=== PATIENT | female | born 1975 | race Caucasian/White ===

== ENCOUNTER 2017-11-03 05:56 | Inpatient (IN) | payer OTHER, MEDICAID ==
[~2017-11-03 05:56] MED LIST: Buffered Lidocaine 0.9% SYRIN* 5 ML/SYR SYRINGE INTRADERM ONE
[2017-11-03] MEDS ORDERED: Sodium Citrate/Citric Acid* 15 ML UDC PO ONE (06:00)
[2017-11-03] MEDS ORDERED: ceFOXitin 2 GM IVPREMIX* 2 GM/50 ML BAG IVPB ONE (06:00)
[2017-11-03] MEDS ORDERED: Lidocaine 1% MPF* 2 ML VIAL ONE (06:41)
[2017-11-03] MEDS ORDERED: OXYTOCIN* 10 UNITS/ML 1 ML VIAL ONE (10:28)
[2017-11-03] MEDS ORDERED: Morphine PF AMP (0.5MG/ML)* 5 MG/10 ML AMP ONE (10:29)
[2017-11-03] MEDS ORDERED: Ketorolac INJ* 30 MG/ML 1 ML VIAL ONE (11:19)
[2017-11-03] MEDS ORDERED: Metoclopramide IV* 5 MG/ML 2 ML VIAL ONE (11:19)
[2017-11-03] MEDS ORDERED: Famotidine IV* 10 MG/ML 2 ML (20 mg) ONE (11:19)
[2017-11-03] MEDS ORDERED: Ondansetron INJ* 2 MG/ML VIAL ONE (11:19)
[2017-11-03] MEDS ORDERED: Dexamethasone IV* 4 MG/ML 1 ML (4 MG) ONE (11:19)
[2017-11-03] MEDS ORDERED: fentaNYL* 50 MCG/ML 2 ML VIAL (100 MCG VIAL) IV PRN (11:21)
[2017-11-03] MEDS ORDERED: DiMENhydriNATE IV* 50 MG/ML VIAL IV PUSH PRN (11:22)
[2017-11-03] MEDS ORDERED: diPHENhydraMINE IV* 50 MG/ML 1 ml VIAL (BENADRYL) IV PRN (11:22)
[2017-11-03] MEDS ORDERED: Scopolamine 1.5 mg* PATCH TRANSDERM PRN (11:22)
[2017-11-03] MEDS ORDERED: oxyCODONE/Acetamin 5/325 MG* TAB PO PRN ×2 (11:22)
[2017-11-03] MEDS ORDERED: Naloxone* 2 MG in NS 0.9% 250 ML* 250 ML IV PRN (11:22)
[2017-11-03] MEDS ORDERED: Nalbuphine* 20 MG/ML 1 ML VIAL IV PRN (11:22)
[2017-11-03] MEDS ORDERED: Naloxone* 0.4 MG/ML 1 ML VIAL IV PRN (11:22)
[2017-11-03] MEDS ORDERED: PROCHLORPERAZINE INJ 5 MG/ML 2 ML VIAL IV PRN (11:22)
[2017-11-03] MEDS ORDERED: Scopolamine PATCH Remove* 1 NOTE MISC PATCH OFF PRN (11:22)
[2017-11-03] MEDS ORDERED: Witch Hazel PAD* JAR TOPICAL PRN (11:48)
[2017-11-03] MEDS ORDERED: Glycerin ADULT SUPP PR PRN (11:48)
[2017-11-03] MEDS ORDERED: Dibucaine 1% 28.35 GM TUBE PR PRN (11:48)
[2017-11-03] MEDS: Simethicone TAB* 80 MG TAB.CHEW PO SCH ×3 (13:41→21:06)
[2017-11-03] MEDS: Ondansetron INJ* 2 MG/ML VIAL IV PRN ×2 (13:41→21:10)
[2017-11-03] MEDS: Nalbuphine* 20 MG/ML 1 ML VIAL IV SCH (14:50)
[2017-11-03] MEDS: Docusate CAP* 100 MG PO SCH ×2 (16:09→21:06)
[2017-11-03] MEDS: Ketorolac INJ* 30 MG/ML 1 ML VIAL IV PRN ×2 (16:54→23:16)
[2017-11-03] MEDS: Acetaminophen TAB* 325 MG PO SCH ×2 (16:55→21:06)
[2017-11-04] MEDS: Acetaminophen TAB* 325 MG PO SCH
[2017-11-04] MEDS ORDERED: oxyCODONE/Acetamin 5/325 MG* TAB PO PRN ×2 (02:38)
[2017-11-04] MEDS: Nalbuphine* 20 MG/ML 1 ML VIAL IV SCH (04:04)
[2017-11-04] MEDS: Acetaminophen TAB* 325 MG PO PRN ×2 (04:05→16:15)
--- NOTE | 2017-11-04 06:55 | OP ---
OPERATIVE REPORT: DATE OF OPERATION: 11/03/17 DATE OF : 79 SURGEON: Roberto Phillips MD. FUDGER: Dr. Traylor. ANESTHESIA: Spinal. PRE-OP DIAGNOSIS: at 39 weeks with prior section who desires permanent sterilizat ion. POST-OP DIAGNOSIS: at 39 weeks with prior section who desires permanent steriliza tion. OPERATIVE PROCEDURE: Repeat low transverse section and bilateral fimbriectomy. ESTIMATED BLOOD LOSS: 600 cc. SPECIMENS SENT TO PATHOLOGY: Bilateral fallopian tube fimbriae. FLUIDS: She received 1400 cc of IV crystalloid fluid. URINE OUTPUT: Clear. FINDINGS: Delivery of a viable male infant with Apgars of 9 and 10, weighing 7 pounds 14 ounces with clear fluid. The placenta was grossly intact with 3-vessel cord noted. The uterus, adnexa, bowel, and bladder were all within normal limits and there were no complications. DESCRIPTION OF PROCEDURE: The patient was taken to the operating room. She was identified and she w as placed on the operating room table where a spinal anesthetic was obtained without difficulty. She was then placed in a supine position with a leftward tilt, prepped and draped in a normal sterile fa shion. A Pfannenstiel skin incision was made with a knife and carried thorough to the underlying lay er of fascia. The fascia was nicked in the midline and extended laterally with curved Barron scissors. The fascia was then grasped superiorly and inferiorly with Randa clamps and dissected off sharply from the rectus muscle. The rectus muscle was in the midline bluntly. The peritoneum was identified, grasped with pickups, entered sharply with Metzenbaum scissors, and extended superiorly a nd inferiorly sharply. A bladder blade was inserted into the patient's abdomen. A bladder flap was created using Metzenbaum scissors over which the bladder blade was then reinserted. A low transverse uterine incision was made with a knife and extended laterally with bandage scissors. The amniotic s ac was ruptured. The infant's head was then grasped and delivered atraumatically. The rest of the i nfant's body was then delivered. The cord was clamped and cut. The infant was given to the pediatri neil. The cord bloods were obtained. The placenta was removed manually. The uterus was then exteri orized, cleared off all clot and debris using moist laparotomy sponges. The uterine incision was the n closed using 0 Polysorb suture in a running locked fashion with a second imbricating layer of 0 Santiago ysorb suture with good hemostasis noted. The uterus was returned to the patient's abdomen. The gutt ers were then cleared off all clot and debris using moist laparotomy sponges. Prior to returning the uterus in the patient's abdomen, a bilateral fimbriectomy was performed in the usual fashion with 0 Polysorb sutures as free ties. At this point, the uterus was placed back into the patient's abdomen. All the instruments and sponges were removed through the patient's abdomen. The peritoneum was yvan sed using 3-0 Polysorb suture in a running fashion. The fascia was closed using 0 Polysorb suture in a running fashion and the skin was closed using Monocryl subcuticular stitch in running fashion. The patient tolerated the procedure well. Sponge, lap, and needle counts were correct x2. She was lomax sferred to the recovery room area in stable condition. [id number]/[facility] #: [id number]
[2017-11-04 07:40] LABS: Hematocrit 28 % (35-47); Hemoglobin 9.5 g/dl (12.0-16.0); Mean Corpuscular HGB Conc 35 g/dl (31-36); Mean Corpuscular Hemoglobin 30 pg (27-31); Mean Corpuscular Volume 85 fL (80-97); Mean Platelet Volume 8 um3 (7.4-10.4); Red Blood Count 3.23 10^6/ul (4.0-5.4); Red Cell Distribution Width 13 % (10.5-15); White Blood Count 11.5 10^3/ul (3.5-10.8)
[2017-11-04] MEDS: Docusate CAP* 100 MG PO SCH ×3 (08:09→20:13)
[2017-11-04] MEDS: Simethicone TAB* 80 MG TAB.CHEW PO SCH ×4 (08:10→20:13)
[2017-11-04] MEDS: Ketorolac INJ* 30 MG/ML 1 ML VIAL IV PRN (08:10)
[2017-11-04] MEDS: Ferrous Gluconate TAB* 324 MG TAB PO SCH ×2 (08:57→20:13)
[2017-11-04] MEDS ORDERED: RHO D Immune Globulin (HUMAN)* 300 MCG = 1,500 I.U. INJ IM ONE (10:43)
[2017-11-04] MEDS ORDERED: Heparin DIALYSIS ONLY(*) 1,000 UNITS/ML VIAL DIALYSIS ONE (11:00)
[2017-11-04] MEDS ORDERED: Epoetin Alfa* 4,000 UNITS/ML VIAL IV ONE (11:00)
[2017-11-04] MEDS: Ibuprofen TAB* 600 MG PO PRN ×2 (14:02→20:13)
[2017-11-04] MEDS ORDERED: Zolpidem TAB* 5 MG PO PRN (21:00)
[2017-11-05] MEDS: Ibuprofen TAB* 600 MG PO PRN ×4 (03:08→22:01)
[2017-11-05] MEDS: Docusate CAP* 100 MG PO SCH ×3 (08:50→22:01)
[2017-11-05] MEDS: Ferrous Gluconate TAB* 324 MG TAB PO SCH ×2 (08:51→22:01)
[2017-11-05] MEDS: Simethicone TAB* 80 MG TAB.CHEW PO SCH ×3 (08:51→22:02)
[2017-11-05 10:50] LABS: Hematocrit 30 % (35-47); Hemoglobin 10.3 g/dl (12.0-16.0); Mean Corpuscular HGB Conc 34 g/dl (31-36); Mean Corpuscular Hemoglobin 29 pg (27-31); Mean Corpuscular Volume 86 fL (80-97); Mean Platelet Volume 8 um3 (7.4-10.4); Red Cell Distribution Width 13 % (10.5-15); White Blood Count 9.9 10^3/ul (3.5-10.8)
[2017-11-06] MEDS: Ibuprofen TAB* 600 MG PO PRN ×2 (04:07→10:55)
[2017-11-06 08:17] VITALS: BP 121/85
[2017-11-06] MEDS: Docusate CAP* 100 MG PO SCH (09:07)
[2017-11-06] MEDS: Simethicone TAB* 80 MG TAB.CHEW PO SCH ×2 (09:07→12:48)
[2017-11-06] MEDS: Ferrous Gluconate TAB* 324 MG TAB PO SCH (09:08)
[2017-11-06] MEDS ORDERED: Varicella Virus Vaccine Live* 0.5 ML VIAL SUBCUT ONE (09:58)
== END 2017-11-06 12:53 | disposition home or self-care (01) | DRG 540 ==
LOC: MCHOB 05:56
PROVIDERS: ADMIT Obstetrics & Gynecology; ATTEND Obstetrics & Gynecology
PROC: 4A1HXCZ Monitoring of Products of Conception, Cardiac Rate, External Approach (ICD-10-PCS; 2017-11-03)
PROC: 0UB70ZZ Excision of Bilateral Fallopian Tubes, Open Approach (ICD-10-PCS; 2017-11-03)
PROC: 10D00Z1 Extraction of Products of Conception, Low, Open Approach (ICD-10-PCS; principal; 2017-11-03 07:45)
DX: O34.211 Maternal care for low transverse scar from previous cesarean delivery (principal); O90.81 Anemia of the puerperium; Z3A.39 39 weeks gestation of pregnancy; Z37.0 Single live birth; Z30.2 Encounter for sterilization
CPT/HCPCS: 36415; 85025; 85461; 86900; 86901; 88302; A9270-GY; J0694; J0885; J1100; J1200; J1644; J1885; J2300; J2405; J2590; J2765; J2790